=== PATIENT | female | born 1990 | race Caucasian/White ===

== ENCOUNTER → 2019-03-04 10:17 | Outpatient (CLI) | payer OTHER, SELFPAY ==
[2019-03-04 11:13] LABS: Hematocrit 38.3 % (36-46); Mean Corpuscular Hemoglobin 30.6 PG (26-34); Mean Corpuscular Volume 90.2 fL (80-100); Platelet Count 295 X10^3/uL (150-400); Red Blood Cell Count 4.25 X10^6/uL (4.0-5.2); Red Cell Distribution Width 12.8 % (11.6-14.8); White Blood Cell Count 5.9 X10^3/uL (4.5-11.0)
[2019-03-04 12:07] LABS: Alanine Aminotransferase 20 IU/L (<35); Albumin 4.4 g/dL (3.5-5.0); Albumin Globulin Ratio 1.5 (1.0-2.8); Alkaline Phosphatase 61 U/L (38-126); Aspartate Aminotransferase 25 IU/L (14-36); BUN Creatinine Ratio 18.3 (6-22); Bilirubin Total 0.6 mg/dL (0.2-1.3); Blood Urea Nitrogen 11 mg/dL (7-17); Calcium 9.5 mg/dL (8.4-10.2); Carbon Dioxide 27 mmol/L (22-32); Chloride 103 mmol/L (98-107); Estimated Glomerular Filt Rate > 60.0 mL/min (>60); Globulin 2.9 g/dL (1.7-4.1); Glucose 86 mg/dL (70-100); HEMOLYSIS < 15 (0-50); Potassium 5.2 mmol/L (3.4-5.1); Sodium 138 mmol/L (137-145); Total Protein 7.3 g/dL (6.3-8.2)
== END ==
PROVIDERS: PCP Nurse Practitioner Family; Visit Provider Nurse Practitioner Family
DX: Z00.00 Encounter for general adult medical examination without abnormal findings (principal)
CPT/HCPCS: 36415; 80053; 85027

== ENCOUNTER → 2019-06-03 10:40 | Outpatient (CLI) | payer OTHER, SELFPAY ==
[2019-06-03 11:40] LABS: HEMOLYSIS < 15 (0-50)
== END ==
PROVIDERS: PCP Nurse Practitioner Family; Referring Provider Nurse Practitioner Family; Visit Provider Nurse Practitioner Family
DX: E87.5 Hyperkalemia (principal)
CPT/HCPCS: 36415; 84132

== ENCOUNTER → 2020-02-12 10:59 | Outpatient (CLI) | payer OTHER, SELFPAY ==
[2020-02-12 12:25] LABS: Add Manual Diff / Slide Review NO; Basophils Absolute Auto 0 /uL (0-100); Basophils Percent Auto 0.2 % (0-2); Eosinophils Absolute Auto 0 /uL (0-450); Eosinophils Percent Auto 0.5 % (2-4); Hematocrit 38.9 % (36-46); Lymphocytes Absolute Auto 1700 /uL (1100-4500); Mean Corpuscular HGB Conc 33.4 % (30-36); Monocytes Absolute Auto 500 /uL (0-900); Neutrophils Absolute Auto 5800 /uL (1500-7000); Neutrophils Percent Auto 72.3 % (50-75); Platelet Count 287 X10^3/uL (150-400); Red Blood Cell Count 4.18 X10^6/uL (4.0-5.2); Red Cell Distribution Width 13.8 % (11.6-14.8); White Blood Cell Count 8.1 X10^3/uL (4.5-11.0)
[2020-02-12 13:56] LABS: Appearance Urine UA CLEAR; Bilirubin Urine UA NEGATIVE (NEGATIVE); Color Urine UA YELLOW; Glucose Urine UA NEGATIVE (Negative); Ketones Urine UA NEGATIVE (NEGATIVE); Leukocyte Esterase Urine UA NEGATIVE (NEGATIVE); Nitrite Urine UA NEGATIVE (Negative); Occult Blood Urine UA NEGATIVE (Negative); Protein Urine UA NEGATIVE (Negative); Urobilinogen Urine UA 0.2 E.U./dL (0.2)
[2020-02-13 08:25] LABS: RPR Screen Non Reactive (Non Reactive)
[2020-02-13 13:00] LABS: Varicella IgG Antibody 2298 index (Immune >165)
[2020-02-13 17:23] LABS: HIV 1 & 2 Ab/Ag 4th Gen Combo NEGATIVE (NEGATIVE); Hep C Virus Ab w/Reflex Quant NEGATIVE s/c (NEGATIVE); Hepatitis B Surface Antigen NEGATIVE s/c (NEGATIVE); Rubella Antibody IgG 17.5 IU/mL (>15)
== END ==
PROVIDERS: PCP Nurse Practitioner Family; Referring Provider Obstetrics & Gynecology; Visit Provider Obstetrics & Gynecology
DX: Z34.81 Encounter for supervision of other normal pregnancy, first trimester (principal)
CPT/HCPCS: 36415; 80055; 81003; 86787; 86803; 86850; 86900; 86901; 87086; 87389

== ENCOUNTER → 2020-03-09 15:52 | Outpatient (CLI) | payer OTHER, SELFPAY ==
[2020-03-09 20:32] LABS: Urine N gonorrhoeae NOT DETECTED
[2020-03-09 20:34] LABS: Urine Chlamydia NOT DETECTED
[2020-03-11 20:07] LABS: AFP, Serum 65.9 ng/mL (.); Estriol, Free 1.31 ng/mL (.); Inhibin A, MoM 1.28 (.); Maternal Ethnicity Caucasian (.); Maternal Weight 189 lbs (.); Number of Fetuses No (.); OSBR Risk 1 IN 1713 (.); Results Report (.); Test Results *Screen Negative* (.); hCG, Serum 30501 mIU/mL (.)
== END ==
PROVIDERS: PCP Nurse Practitioner Family; Referring Provider Obstetrics & Gynecology; Visit Provider Obstetrics & Gynecology
DX: Z34.82 Encounter for supervision of other normal pregnancy, second trimester (principal); Z3A.17 17 weeks gestation of pregnancy
CPT/HCPCS: 36415; 82105; 82677; 84702; 86336; 87491; 87591

== ENCOUNTER → 2020-03-23 09:21 | Outpatient (CLI) | payer OTHER, SELFPAY ==
--- NOTE | 2020-03-23 09:22 | DI.US.S_ITS ---
PROCEDURE: US OB >= 14 WEEKS FETUS INDICATIONS: Anatomy Scan OUTSIDE/PRIOR DATING DATA: Last menstrual period (LMP): 11/02/19. LMP-based estimated date of delivery (NORRIS): 08/08/20 . First dating scan (date and location): 01/10/20 . Estimated date of delivery (NORRIS) from first dating scan: 08/06/20 . TECHNIQUE: Real-time scanning was performed of the fetus, with image documentation and biometric measurements. Endovaginal scanning: Not needed COMPARISON: [facility], , OB >= 14 WEEKS FETUS, 03/09/2020, 15:58. FINDINGS: General: A single living intrauterine gestation is present. Presentation: Vertex. Placenta: Placental position is posterior , without previa. Amniotic fluid index: 18.4 cm, normal range is 5-24 cm. heart rate: 160 beats per minute. Maternal cervical canal: 4.0 cm long. Normal lower limit is 2.5 cm. biometrics: Biparietal diameter: 5.1 cm, 21 weeks 4 days Head circumference: 19.1 cm, 21 weeks 3 days Abdominal circumference: 15.8 cm, 20 weeks 6 days Femur length: 3.6 cm, 21 weeks 2 days Estimated gestational age from initial scan: 20 weeks 4 days Composite gestational age from present scan: 21 weeks 2 days Estimated weight and percentile: 400 g, 75th percentile Measurement variability for biometric dating: +/- 7 days from 14 weeks to 15 weeks 6 days gestation, +/- 10 days from 16 weeks to 21 weeks 6 days gestation, +/- 2 weeks from 22 weeks to 27 weeks 6 days gestation, +/- 3 weeks for 28 weeks gestation or later. weight reference: 4500 g or EFW >90/95% is considered macrosomia or large for gestational age. EFW <10% is small for gestational age. EFW 5% or less is considered intra-uterine growth restriction. Anatomic survey: Neuro: Ventricles are non-dilated at less than 10 mm. Cisterna magna is normal at 3-11 mm. Cerebellum is normal in size and morphology. Nuchal skin fold: Normal at less than 6 mm between 14-21 weeks gestational age. Face: Nose and lips, facial profile are normal. Spine: No evidence for spina bifida. Heart: 4-chambered heart is present, with normal ventricular outflow tracts. Diaphragm: Diaphragm is intact. Stomach: Left-sided stomach is present. Kidneys: No hydronephrosis. Normal is less than 5 mm in 2nd trimester, less than 7 mm in 3rd trimester. Cord: 3-vessel cord has orthotopic insertion. Bladder: Normal in size. Extremities: All 4 extremities identified. IMPRESSION: Normal survey of anatomy. Vertex presentation, normal amniotic fluid volume. The delivery date is projected to be centered on 08/06/20, +/-5 days. Dictated by: Silvestre Sood M.D. on 03/23/2020 at 12:32 Approved by: Silvestre Sood M.D. on 03/23/2020 at 12:35
== END ==
PROVIDERS: PCP Nurse Practitioner Family; Referring Provider Obstetrics & Gynecology; Visit Provider Obstetrics & Gynecology
DX: Z34.82 Encounter for supervision of other normal pregnancy, second trimester (principal); Z3A.21 21 weeks gestation of pregnancy
CPT/HCPCS: 76811

== ENCOUNTER 2020-05-29 11:06 | Observation (INO) | payer OTHER, SELFPAY ==
[2020-05-29 12:03] LABS: Appearance Urine UA CLEAR; Bilirubin Urine UA NEGATIVE (NEGATIVE); Color Urine UA YELLOW; Glucose Urine UA NEGATIVE (Negative); Ketones Urine UA NEGATIVE (NEGATIVE); Leukocyte Esterase Urine UA TRACE (NEGATIVE); Nitrite Urine UA NEGATIVE (Negative); Occult Blood Urine UA NEGATIVE (Negative); Protein Urine UA NEGATIVE (Negative); Urobilinogen Urine UA 0.2 E.U./dL (0.2)
[2020-05-29 12:08] LABS: Bacteria Urine None Seen; RBC Urine None Seen (0-5/HPF)
--- NOTE | 2020-05-29 12:09 | DI.US.S_ITS ---
PROCEDURE: US OB >= 14 WEEKS FETUS INDICATIONS: CERVICAL LENGTH OUTSIDE/PRIOR DATING DATA: Last menstrual period (LMP): 11/02/2019 . LMP-based estimated date of delivery (NORRIS): 08/08/2020 . First dating scan (date and location): 01/10/2020 . Estimated date of delivery (NORRIS) from first dating scan: 08/06/2020 . TECHNIQUE: Real-time scanning was performed of the fetus, with image documentation and biometric measurements. COMPARISON: [facility], OB >= 14 WEEKS FETUS, 03/23/2020, 9:33. FINDINGS: General: A single living intrauterine gestation is present. Presentation: Vertex. Placenta: Placental position is right posterior , without previa. Lower placental edge 2 cm or less from internal cervical os qualifies as low lying placenta. Amniotic fluid index: 15.8 cm, normal range is 5-24 cm. heart rate: 136 beats per minute. Maternal cervical canal: 3.8 cm long. Normal lower limit is 2.5 cm. biometrics: Anatomic survey: Neuro: Not imaged Nuchal skin fold: Not imaged Face: Not imaged Spine: Not imaged Heart: Not imaged Diaphragm: Diaphragm is intact. Stomach: Left-sided stomach is present. Kidneys: No hydronephrosis. Normal is less than 5 mm in 2nd trimester, less than 7 mm in 3rd trimester. Cord: Not imaged Bladder: Normal in size. Extremities: Not imaged IMPRESSION: 1. Single live intrauterine . 2. Cervix is closed measuring 3.8 centimeters in length. 3. DO = 15.8 centimeters Dictated by: Jamison Elder M.D. on 05/29/2020 at 13:42 Approved by: Jamison Elder M.D. on 05/29/2020 at 13:47
[2020-05-29 12:18] LABS: Squamous Epithelial Cell Urine 5-10 /HPF (0-5/HPF); WBC Urine 1-5/HPF (0-5/HPF)
[2020-05-29 12:55] LABS: Fetal Fibronectin Negative
== END 2020-05-29 13:45 | disposition home or self-care (01) ==
PROVIDERS: Admitting Provider Obstetrics & Gynecology; PCP Nurse Practitioner Family; Referring Provider Obstetrics & Gynecology; Visit Provider Obstetrics & Gynecology
DX: O47.03 False labor before 37 completed weeks of gestation, third trimester (principal); Z3A.29 29 weeks gestation of pregnancy
CPT/HCPCS: 59025; 59050; 76811; 81003; 81015; 82731; 84112; G0378; G0379

== ENCOUNTER → 2020-06-01 09:48 | Outpatient (CLI) | payer OTHER, SELFPAY ==
[2020-06-01 11:55] LABS: Fetal Fibronectin Negative
== END ==
PROVIDERS: PCP Nurse Practitioner Family; Visit Provider Obstetrics & Gynecology
DX: O47.9 False labor, unspecified (principal); Z3A.30 30 weeks gestation of pregnancy
CPT/HCPCS: 82731

== ENCOUNTER → 2020-06-13 09:07 | Outpatient (CLI) | payer OTHER, SELFPAY ==
[2020-06-13 13:25] LABS: Fetal Fibronectin Negative
== END ==
PROVIDERS: PCP Nurse Practitioner Family; Visit Provider Obstetrics & Gynecology
DX: O47.9 False labor, unspecified (principal); Z3A.32 32 weeks gestation of pregnancy
CPT/HCPCS: 82731

== ENCOUNTER → 2020-06-29 15:33 | Outpatient (CLI) | payer OTHER, SELFPAY ==
[2020-06-29 17:00] LABS: Fetal Fibronectin Negative
== END ==
PROVIDERS: PCP Nurse Practitioner Family; Visit Provider Obstetrics & Gynecology
DX: O47.9 False labor, unspecified (principal); Z3A.34 34 weeks gestation of pregnancy
CPT/HCPCS: 82731

== ENCOUNTER → 2020-07-12 16:25 | Outpatient (CLI) | payer OTHER, SELFPAY ==
[2020-07-13 11:21] LABS: Strep Grp B PCR NEG for Grp B Strep
== END ==
PROVIDERS: PCP Nurse Practitioner Family; Visit Provider Obstetrics & Gynecology
DX: Z34.83 Encounter for supervision of other normal pregnancy, third trimester (principal); Z3A.36 36 weeks gestation of pregnancy
CPT/HCPCS: 87653

== ENCOUNTER 2020-07-18 16:19 | Outpatient (CLI) | payer OTHER, SELFPAY | END 2020-07-18 17:10 | disposition home or self-care (01) | LOC: LABOR 16:42 → OB 07-19 07:10 | PROVIDERS: PCP Nurse Practitioner Family; Referring Provider Obstetrics & Gynecology; Visit Provider Obstetrics & Gynecology | DX: Z03.71 Encounter for suspected problem with amniotic cavity and membrane ruled out (principal); Z3A.37 37 weeks gestation of pregnancy | CPT/HCPCS: 59025; 84112; G0378; G0379 ==

== ENCOUNTER 2020-07-20 12:42 | Inpatient (IN) | payer OTHER, SELFPAY ==
[2020-07-20 18:13] LABS: Add Manual Diff / Slide Review NO; Basophils Absolute Auto 0 /uL (0-100); Basophils Percent Auto 0.2 % (0-2); Eosinophils Absolute Auto 0 /uL (0-450); Eosinophils Percent Auto 0.4 % (2-4); Hematocrit 35.9 % (36-46); Hemoglobin 12.2 g/dL (12.0-16.0); Lymphocytes Absolute Auto 2000 /uL (1100-4500); Lymphocytes Percent Auto 15.8 % (25-40); Mean Corpuscular Hemoglobin 32.3 PG (26-34); Monocytes Absolute Auto 800 /uL (0-900); Monocytes Percent Auto 6.6 % (3-14); Neutrophils Absolute Auto 9500 /uL (1500-7000); Platelet Count 234 X10^3/uL (150-400); Red Blood Cell Count 3.78 X10^6/uL (4.0-5.2); Red Cell Distribution Width 13.6 % (11.6-14.8); White Blood Cell Count 12.4 X10^3/uL (4.5-11.0)
[2020-07-20 18:17] VITALS: BP 107/64
[2020-07-20 19:00] LABS: COVID19 - ADMIT (NP swab/PCR) Negative (Negative)
[2020-07-20] MEDS: LACTATED RINGERS 1,000 ML 100 ML IV (20:15)
[2020-07-21] MEDS: LACTATED RINGERS 1,000 ML 100 ML IV (03:31)
[2020-07-21] MEDS: FENT 2MCG/ML BUPIV 0.125% EPI 200 MCG/100 ML PLAST..BAG 12 MCG EPIDURAL (10:30)
--- NOTE | 2020-07-21 16:35 | P.HPOB_ITS ---
OB HPI Date/Time Date of admission: 07/20/20 Date Patient Seen: 07/20/20 Time Patient Seen: 17:30 History of Present Condition Chief complaint: Labor & Delivery : 2 Para: 1 Estimated Date of Delivery: 08/08/20 Estimated Gestational Age (weeks): 37+3 Narrative: Kristne Zabala is a 29 year old female 2 para 1 at 37 and 2 7th weeks gestation who presented in early to active labor. History of Present care: good care, initiated at week # (9), number of visits (10) and pounds weight gain (81) Dating criteria: LMP confirmed by 1st trimester US Ultrasounds: normal 1st trimester US and normal mid trimester US Obstetrical complications: none Medical complications: none Preadmission Labs Blood type: A (+) positive -: Antibody screen: negative, GBS status: negative, HBsAG: negative, HIV: negative and RPR/VDLR: negative -: Chlamydia screen: not detected and Gonorrhea screen: not detected -: Rubella: immune and Varicella: immune HCT: 35.9 HCAB: negative PAP: Normal Quad screen: Normal Urine: neg 1 hr GTT: 112 Prior (ies) History: One spontaneous vaginal delivery. Had a hemorrhage. Evaluation Evaluation Baseline heart rate: 135 Variability: Moderate (11-25) monitor accelerations: Present monitor decelerations: Absent Contraction Frequency (minutes): 5 Uterine Contraction Intensity: Moderate Status: Category l Cervical dilation (cm): 5 Cervical effacement (%): 85 station: -1 Laboratory results: Laboratory Tests 07/20/20 07/20/20 07/20/20 16:30 16:30 16:30 WBC 12.4 H RBC 3.78 L Hgb 12.2 Hct 35.9 L MCV 95.0 MCH 32.3 MCHC 34.0 RDW 13.6 Plt Count 234 Neut % (Auto) 77.0 H Lymph % (Auto) 15.8 L Dade % (Auto) 6.6 Eos % (Auto) 0.4 L Baso % (Auto) 0.2 Neut # (Auto) 9500 H Lymph # (Auto) 2000 Dade # (Auto) 800 Eos # (Auto) 0 Baso # (Auto) 0 SARS-CoV-2 (PCR) Negative Blood Type A Positive Antibody Screen Negative [facility] Medical History (Updated 05/08/20 @ 07:07 by Cecilia Jimenez MD) Abnormal Pap smear of cervix (~2011) Generalized anxiety disorder (2011) GERD (gastroesophageal reflux disease) Human papilloma virus (~2011) Migraine without aura (2010) Panic attack as reaction to stress (2011) Placental abruption (~04/19/13) Shoulder pain (~2017) (spontaneous vaginal delivery) (~04/19/13) Surgical History (Updated 12/16/19 @ 11:40 by Bhavana Zapata RN) Anesthesia History of appendectomy (~2006) History of cholecystectomy (~2014) Lipoma of back (~2011) [place]cock teeth extracted (~2008) Family History (Updated 12/16/19 @ 11:34 by Bhavana Zapata, SHERYL) Father Alcoholism Smoker Mother Alcoholism Grandfather Alcoholism Hyperlipidemia Hypertension S/P coronary artery stent placement Grandfather Hyperlipidemia Hypertension Alcoholism Grandmother Hyperlipidemia Hypertension Grandmother Unknown whether patient has any health problems Brother Asthma Social History marital status: number of children: 1 household members: spouse pets and animals: Yes (X 1 dog) education level: other ([place] [employer]) occupational status: employed current occupational exposures/hazards: Yes Previous occupational history: [place] special ta needs: No Smoking Status: Never smoker second hand exposure: No alcohol intake: former (pre- : rare use a glass of wine, once a month) substance use type: does not use Meds Home Medications and Allergies Home Medications Medication Instructions Recorded Confirmed Type cetirizine 10 mg capsule 10 mg PO DAILY 12/16/19 07/21/20 History prenat.vits,luan,qum-ldrr-vlbro 1 tab PO DAILY 12/16/19 07/21/20 History Allergies Allergy/AdvReac Type Severity Reaction Status Date / Time morphine Allergy Intermediate Hives Verified 07/18/20 15:41 Exam Vital Signs (past 8 hours): Generally: Patient in moderate distress secondary to contractions Lungs: Clear to auscultation bilaterally Cardiovascular: Regular rate and rhythm Fundal height: 39 cm Estimated weight: 7-1/2 lb Extremities: Trace edema, 1+ DTRs Objective Labs Result Diagrams: 07/20/20 16:30 Labs: Laboratory Results - last 24 hr 07/20/20 07/20/20 07/20/20 16:30 16:30 16:30 WBC 12.4 H RBC 3.78 L Hgb 12.2 Hct 35.9 L MCV 95.0 MCH 32.3 MCHC 34.0 RDW 13.6 Plt Count 234 Neut % (Auto) 77.0 H Lymph % (Auto) 15.8 L Dade % (Auto) 6.6 Eos % (Auto) 0.4 L Baso % (Auto) 0.2 Neut # (Auto) 9500 H Lymph # (Auto) 2000 Dade # (Auto) 800 Eos # (Auto) 0 Baso # (Auto) 0 SARS-CoV-2 (PCR) Negative Blood Type A Positive Antibody Screen Negative Assessment and Plan Assessment and Plan Assessment and Plan narrative: Assessment: 29-year-old 2 para 1 at 37 and 2 7th weeks gestation in early to active labor Plan: Artificial rupture of membranes with copious amounts of clear amniotic fluid Expected management to spontaneous vaginal delivery Time Spent with Patient Total time spent with greater than 50% in coordination of care (as documented) at patient's floor/unit and/or counseling patient:: 15-24 minutes
--- NOTE | 2020-07-21 16:41 | PM.OBPNLAB ---
Date/Time Date Patient Seen: 07/21/20 Time Patient Seen: 08:00 Pelvic Exam Dilation (cm): 8 Effacement (%): 100 station: 0 Amniotic membrane status: Ruptured Contractions Monitor mode: External Contraction frequency (min): 4 Contraction duration (min): 1 Contraction intensity: Strong/Firm Status status: Category l Heart Rate Baseline: 135 Monitor Accelerations: Present Monitor Decelerations: Absent Monitor Variability: Moderate Assessment and Plan Assessment: active labor Plan: other (Epidural, expected management to spontaneous vaginal delivery)
--- NOTE | 2020-07-21 16:43 | PM.OBPRVD ---
Events: Labor Augmentation Labor & Delivery Delivery date: 07/21/20 Intrapartal Events: Prolonged Latent Phase Cervical ripening method: none Induction method: none Delivery augmentation: rupture of membranes Delivery monitor: external FHT and external uterine Route of delivery: Episiotomy description: None L&D Laceration Description: Perineal - 2nd Degree and Vaginal - 2nd Degree Delivery repair: vicryl and chromic Estimated blood loss (mL): 300 Anesthesia Type: Epidural Complications: None Narrative: Patient complete and pushed for 20 minutes. At 1:49 p.m., a live male infant delivered spontaneously in the MITCH presentation. No nuchal cord. The remainder of the body delivered without difficulty and infant was placed on mom's abdomen. The cord was double clamped and cut. Pitocin was given in the IV fluids. Cord bloods were obtained. The placenta delivered intact with a three-vessel cord at 1:58 p.m.. Fundus was massaged to firm. A second-degree perineal/vaginal laceration was repaired in the usual fashion. Apgars 9 at 1 minute and 9 at 5 minutes. Weight 7 lb 11 oz. . Epidural analgesia. Mom and infant stable to recovery. [place] Baby 1: gender: Male Presentation: vertex Position: Right Occiput Anterior Placenta delivery description: Spontaneous Cord Vessel Description: 3 Vessels score (1 min): 9 score (5 min): 9 weight: 7 lb 11 oz Plan for aftercare: Routine care
[2020-07-21] MEDS: DERMOPLAST SPRAY 20% 60 ML 1 SPRAY TOP (20:17)
[2020-07-21] MEDS: IBUPROFEN 600 MG TABLET PO (20:17)
[2020-07-22] MEDS: IBUPROFEN 600 MG TABLET PO ×3 (02:13→15:27)
[2020-07-22 06:33] LABS: Hematocrit 34.5 % (36-46); Hemoglobin 11.7 g/dL (12.0-16.0)
[2020-07-22] MEDS: PRENATAL VIT,CALC/IRON/FOLIC 1 TABLET 1 TAB PO (09:11)
[2020-07-22] MEDS: DOCUSATE 100 MG CAPSULE PO (09:11)
--- NOTE | 2020-07-22 10:03 | PM.OBDS.1 ---
Discharge Providers Provider Date of admission: 07/20/20 12:42 Discharge Date: 07/22/20 Primary care physician: SHEYLA Pruitt Consults: 07/22/20 16:30 Consult to Color Drum Worker Routine Comment: Discharge provider: Cecilia Jimenez MD Summary Hospital Course Date Patient Seen: 07/22/20 Time Patient Seen: 10:03 Diagnoses: Thirty-seven and 3 7th weeks gestation Spontaneous vaginal delivery Second-degree laceration and repair Hospital Course: Patient is a 29-year-old 2 para 2 who presented on July 20, 2020 with regular contractions approximately 5 minutes apart. She was found to be 5 cm dilated. Artificial rupture membranes was performed with copious clear amniotic fluid. She slowly progressed into more active labor with some breast pumping. She had a spontaneous vaginal delivery on July 21, 2020 with a second-degree laceration and repair. On day # 1 she is feeling well. is going well. She requests discharge. Peripartum Data Infant Delivery Method: Natural Vaginal Laceration Description: Perineal - 2nd Degree and Vaginal - 2nd Degree Episiotomy description: None Procedures: Artificial rupture of membranes Spontaneous vaginal delivery Second-degree laceration and repair complications: none 1: Gender: Male Disposition of : home Status at Discharge Cognitive/behavioral status at discharge: oriented Functional status at discharge: independent ambulation Overall status at discharge: patient is progressing back to baseline Time Spent with Patient Time attestation: Total time spent providing and/or coordinating discharge services: Time spent: Less than 30 minutes Objective Labs Result Diagrams: 07/22/20 06:22 Labs: Laboratory Results - last 24 hr 07/22/20 06:22 Hgb 11.7 L Hct 34.5 L Exam Vital Signs (past 8 hours): Generally: Patient is sitting up in a chair, nursing , no acute distress Fundus: Firm at U -1 Extremities: 1+ edema, negative Homans Discharge Plan Discharge Plan Patient Disposition: Home Provider Discharge Comment: Call with fever, chills, or bleeding vaginally more than a pad in an hour ibuprofen 600 mg every 6 hours as needed for cramping Tylenol 650 mg every 6 hours as needed Discharge orders & Medications Prescriptions: Continued prenat.vits,luan,tqv-dzlv-zwaar Tablet 1 tab PO DAILY RF: 0 Discontinued Zyrtec 10 mg capsule 10 mg PO DAILY RF: 0 Follow up/Referrals: Cecilia Jimenez MD [Physician] - 6 Weeks Diet/Activity/Treatments Diet: Regular Skin/Wound/Dressing Care Report to your healthcare provider any signs of infection, such as:: chills, fever, increased pain and unusual drainage Visit Report/Discharge Packet Instructions: DI for Labor and Delivery, Vaginal Discharge Data Primary Care Provider: Margie Holder
[2020-07-22 11:27] VITALS: BP 104/70; PULSE 84; RESP 18; TEMP 36.8
== END 2020-07-22 15:35 | disposition home or self-care (01) | DRG 807 ==
PROVIDERS: Admitting Provider Obstetrics & Gynecology; PCP Nurse Practitioner Family; Referring Provider Obstetrics & Gynecology; Visit Provider Obstetrics & Gynecology
DX: O62.0 Primary inadequate contractions (principal); Z37.0 Single live birth; Z3A.37 37 weeks gestation of pregnancy; O70.1 Second degree perineal laceration during delivery; Z20.822 Contact with and (suspected) exposure to COVID-19
CPT/HCPCS: 01967; 36415; 59050; 59400; 85014; 85018; 85025; 86850; 86900; 86901; 87635; G0378; G0379